=== PATIENT | female | born 1980 ===

== ENCOUNTER 2017-08-14 12:51 | Inpatient (IN) | payer OTHER ==
--- NOTE | 2017-08-14 13:51 | OBHP ---
Datetime: 08/14/2017 13:47 IP Adm Impression: Term, intrauterine ; Active labor IP Admit Plan: Admit to unit; Initiate labor protocol Admit Comment, IP Provider: at 40weeks came withc/o ctxs started last night, getting worse, 5/1 0,no vb, lof+fm obhx 3 x pmh den med pnv all nkda psh de soch de ve /-2 a/p at 40+weeks in lbor admit to l_d npo/ivf labs cont tomi and efm anticipate Pelvic Type - PN: Adequate Extremities - PN: Normal Abdomen - PN: Normal Back - PN: Normal Breast - PN: Normal Lungs - PN: Normal Heart - PN: Normal Thyroid - PN: Normal Neurologic - PN: Normal HEENT - PN: Normal General - PN: Normal FHR - Baseline A Provider: 130 Contraction Comments Provider: irrg IP Hx Assessment: The History has been Reviewed and is Current EGA AdmitDate IP: 40.1 Vital Signs Provider: Reviewed; Within Normal Limits IP Indication for Induction: Postterm IP Chief Complaint: Uterine contractions NICHD Variability Prov Fetus A: Moderate 6-25bpm NICHD Accel Fetus A IP Provider: [id number] FHR Category Provider Fetus A: Category I Dilatation, Provider: 4 Effacement, Provider: 80 Station, Provider: -2 Genitourinary Exam: Normal DTRs - PN: Normal
[2017-08-14] MEDS ORDERED: Oxytocin 30 UNIT 30 UNITS/500 ML BAG IV PRN (13:55)
[2017-08-14 13:56] VITALS: BMI 33.8
[2017-08-14] MEDS ORDERED: Lactated Ringer's 1,000 ML IV SCH (14:00)
[2017-08-14 14:19] LABS: BASO % 0.2 % (0.0-2.0); EOS % 0.4 % (0.0-4.0); HEMOGLOBIN 13.5 g/dL (11.0-16.0); LYMPH # 2.4 K/uL (1.0-4.3); LYMPH % 16.9 % (20.0-40.0); MEAN CELL VOLUME 96.8 fL (81.0-99.0); MEAN CORPUSCULAR HEMOGLOBIN 33.1 pg (27.0-31.0); MEAN CORPUSCULAR HGB CONC 34.2 g/dL (33.0-37.0); MEAN PLATELET VOLUME 9.2 fL (7.2-11.7); MONO # 0.7 K/uL (0.0-0.8); NEUT # 10.8 K/uL (1.8-7.0); NEUT % 77.5 % (50.0-75.0); RBC 4.08 Mil/uL (3.80-5.20); RED CELL DISTRIBUTION WIDTH 14.6 % (11.5-14.5)
[2017-08-14] MEDS ORDERED: Oxytocin 30 UNIT 30 UNITS/500 ML BAG IV ONE (14:25)
[2017-08-14 14:37] LABS: SQUAMOUS EPITHIAL 31 /hpf (0-5); URINE BACTERIA RARE (<OCC); URINE BILIRUBIN NEGATIVE (NEGATIVE); URINE BLOOD 2+ (NEGATIVE); URINE CLARITY Hazy (Clear); URINE COLOR Yellow (YELLOW); URINE GLUCOSE (UA) NORMAL (Normal); URINE LEUKOCYTE ESTERASE NEG Leu/uL (Negative); URINE PROTEIN NEGATIVE (NEGATIVE); URINE UROBILINOGEN NORMAL mg/dL (0.2-1.0)
[2017-08-14 14:45] LABS: ALB/GLOB RATIO 0.9 (1.0-2.1); ALBUMIN 3.5 g/dL (3.5-5.0); ALT/SGPT 8 U/L (9-52); AST/SGOT 21 U/L (14-36); BLOOD UREA NITROGEN 10 mg/dL (7-17); CALCIUM 9.4 mg/dl (8.6-10.4); GFR AFRICAN-AMERICAN > 60; GFR NON-AFRICAN AMERICAN > 60
[2017-08-14] MEDS ORDERED: Bupivacaine HCl/FentaNYL Cit 100 ML EPI ONE (15:05)
[2017-08-14] MEDS ORDERED: Oxytocin 20 units in LR 2,000 ML IV ONE (15:05)
[2017-08-14] MEDS ORDERED: Bupivacaine HCl 0.25% PF (10 ml) Inj ONE (16:10)
[2017-08-14] MEDS ORDERED: Oxycodone/Acetaminophen 5/325 mg Tab PO PRN (17:13)
[2017-08-14] MEDS ORDERED: Benzocaine/Menthol 20%-0.5% Topical Spray (60 ml) TOP PRN (17:13)
--- NOTE | 2017-08-14 17:14 | OBDS ---
DELIVERY PERSONNEL Delivery Doctor: Isaiah Hamlin MD Anesthesiologist: christine MATERNAL INFORMATION Delivery Anesthesia: Epidural Other Maternal Complications: AMA H/O +HPV (2016) RN Comments: Patient has consents signed for BTL in chart Provider Comments: baby deliverd in ann. end clean no com. 9/9 LABOR SUMMARY EDC: 08/13/2017 00:00 No. Babies in Womb: 1 Attempted: No Labor Anesthesia: Epidural LABOR INFORMATION Reason for Induction: Not Applicable Onset of Labor: 08/14/2017 05:00 Oxytocin: Augmentation Group B Beta Strep: Negative Steroids Given: None Reason Steroids Not Administered: Not Applicable MEMBRANES Membranes Rupture Method: Spontaneous Rupture of Membranes: 08/14/2017 15:12 Amniotic Fluid Color: Clear Amniotic Fluid Amount: Large Amniotic Fluid Odor: None BABY A INFORMATION Born in Route : No : N/A PRESENTATION/POSITION BABY A Presentation: Cephalic Cephalic Presentation: Vertex Vertex Position: Left Occipital Anterior Breech Presentation: N/A PLACENTA INFORMATION BABY A Placenta Method of Delivery: Spontaneous Placenta Status: Delivered INFORMATION BABY A Gestational Age at Delivery: 40.1 Gestational Status: Term Infant Sex: Male IDENTIFICATION/MEDS BABY A ID Band Number: [id number] Sensor Number: [id number]
[2017-08-14] MEDS ORDERED: Oxytocin 30 UNIT 30 UNITS/500 ML BAG IV SCH (17:15)
[2017-08-15 07:26] LABS: HEMOGLOBIN 13.1 g/dL (11.0-16.0); MEAN CELL VOLUME 96.8 fL (81.0-99.0); MEAN CORPUSCULAR HEMOGLOBIN 33.1 pg (27.0-31.0); MEAN CORPUSCULAR HGB CONC 34.2 g/dL (33.0-37.0); MEAN PLATELET VOLUME 9.7 fL (7.2-11.7); RBC 3.97 Mil/uL (3.80-5.20); RED CELL DISTRIBUTION WIDTH 14.5 % (11.5-14.5); WHITE BLOOD COUNT 17.1 K/uL (4.8-10.8)
--- NOTE | 2017-08-15 10:40 | OBPPN ---
Datetime: 08/15/2017 10:36 PP Pain Prov: Within normal limits PP Nausea Prov: Denies PP Flatus Prov: Yes PP BM Prov: No PP Breasts Prov: Normal PP Heart Prov: Normal PP Lungs Prov: Normal PP Abdomen/Uterus Prov: Normal PP Lochia Prov: Normal PP Vulva/Perineum Prov: Normal PP CVA Tenderness Prov: Normal PP Extremities Prov: Normal PP C/S Incision Prov: Not Applicable PP Progress Prov: Normal PP Impression Prov: Normal progression PP Plan Prov: Continue present management PP Progress Note Prov: pt seen and examiend and reprot pain contolled, ambuitng, voidng, passing fla tus, VSS PE see above A/P s/p ppd #1 doign wlel f/u am cbc pain mangemtn encouarg ambiaotn, breat feeding IP PP Procedures: None Vital Signs Provider PP: Reviewed; Within Normal Limits
[2017-08-15] MEDS: Oxycodone/Acetaminophen 5/325 mg Tab PO PRN (19:49)
[2017-08-16 08:05] LABS: BASO % 0.2 % (0.0-2.0); EOS # 0.1 K/uL (0.0-0.7); EOS % 0.4 % (0.0-4.0); HEMOGLOBIN 13.9 g/dL (11.0-16.0); LYMPH # 2.7 K/uL (1.0-4.3); LYMPH % 18.3 % (20.0-40.0); MEAN CELL VOLUME 97.3 fL (81.0-99.0); MEAN CORPUSCULAR HEMOGLOBIN 32.5 pg (27.0-31.0); MEAN CORPUSCULAR HGB CONC 33.4 g/dL (33.0-37.0); MEAN PLATELET VOLUME 9.1 fL (7.2-11.7); MONO # 0.6 K/uL (0.0-0.8); MONO % 4.4 % (0.0-10.0); NEUT # 11.2 K/uL (1.8-7.0); NEUT % 76.7 % (50.0-75.0); NRBC % 0.1 % (0.0-2.0); RBC 4.26 Mil/uL (3.80-5.20); RED CELL DISTRIBUTION WIDTH 14.6 % (11.5-14.5); WHITE BLOOD COUNT 14.6 K/uL (4.8-10.8)
[2017-08-16 08:07] VITALS: BP 106/67; PULSE 79; TEMP 98; O2SAT 97
[2017-08-16] MEDS: Oxycodone/Acetaminophen 5/325 mg Tab PO PRN (08:57)
--- NOTE | 2017-08-16 10:24 | CP.PCM.DIS ---
Provider - Provider Date of Admission: 08/14/17 13:50 Attending physician: Isaiah Hamlin MD Primary care physician: ad Time Spent in preparation of Discharge (in minutes): 10 Diagnosis - Discharge Diagnosis (1) Labor abnormality, delivered Status: Acute Hospital Course - Lab Results Lab Results: Most Recent Lab Values WBC 14.6 K/uL (4.8-10.8) H 08/16/17 07:56 RBC 4.26 Mil/uL (3.80-5.20) 08/16/17 07:56 Hgb 13.9 g/dL (11.0-16.0) 08/16/17 07:56 Hct 41.5 % (34.0-47.0) 08/16/17 07:56 MCV 97.3 fL (81.0-99.0) 08/16/17 07:56 MCH 32.5 pg (27.0-31.0) H 08/16/17 07:56 MCHC 33.4 g/dL (33.0-37.0) 08/16/17 07:56 RDW 14.6 % (11.5-14.5) H 08/16/17 07:56 Plt Count 146 K/uL (130-400) 08/16/17 07:56 MPV 9.1 fL (7.2-11.7) 08/16/17 07:56 Neut % (Auto) 76.7 % (50.0-75.0) H 08/16/17 07:56 Lymph % (Auto) 18.3 % (20.0-40.0) L 08/16/17 07:56 [place] % (Auto) 4.4 % (0.0-10.0) 08/16/17 07:56 Eos % (Auto) 0.4 % (0.0-4.0) 08/16/17 07:56 Baso % (Auto) 0.2 % (0.0-2.0) 08/16/17 07:56 Neut # (Auto) 11.2 K/uL (1.8-7.0) H 08/16/17 07:56 Lymph # (Auto) 2.7 K/uL (1.0-4.3) 08/16/17 07:56 [place] # (Auto) 0.6 K/uL (0.0-0.8) 08/16/17 07:56 Eos # (Auto) 0.1 K/uL (0.0-0.7) 08/16/17 07:56 Baso # (Auto) 0.0 K/uL (0.0-0.2) 08/16/17 07:56 Sodium 135 mmol/L (132-148) 08/14/17 14:12 Potassium 3.8 mmol/L (3.6-5.2) 08/14/17 14:12 Chloride 103 mmol/L (98-107) 08/14/17 14:12 Carbon Dioxide 21 mmol/L (22-30) L 08/14/17 14:12 Anion Gap 15 (10-20) 08/14/17 14:12 BUN 10 mg/dL (7-17) 08/14/17 14:12 Creatinine 0.5 mg/dL (0.7-1.2) L 08/14/17 14:12 Est GFR ( Amer) > 60 08/14/17 14:12 Est GFR (Non-Af Amer) > 60 08/14/17 14:12 POC Glucose (mg/dL) 79 mg/dL (65-110) 08/16/17 10:02 Random Glucose 74 mg/dL (65-105) 08/14/17 14:12 Calcium 9.4 mg/dl (8.6-10.4) 08/14/17 14:12 Total Bilirubin 1.1 mg/dL (0.2-1.3) 08/14/17 14:12 AST 21 U/L (14-36) 08/14/17 14:12 ALT 8 U/L (9-52) L 08/14/17 14:12 Alkaline Phosphatase 145 U/L (38-126) H 08/14/17 14:12 Total Protein 7.2 g/dL (6.3-8.3) 08/14/17 14:12 Albumin 3.5 g/dL (3.5-5.0) 08/14/17 14:12 Globulin 3.7 gm/dL (2.2-3.9) 08/14/17 14:12 Albumin/Globulin Ratio 0.9 (1.0-2.1) L 08/14/17 14:12 Urine Color Yellow (YELLOW) 08/14/17 14:12 Urine Clarity Hazy (Clear) 08/14/17 14:12 Urine pH 6.0 (5.0-8.0) 08/14/17 14:12 Ur Specific [place] 1.019 (1.003-1.030) 08/14/17 14:12 Urine Protein Negative mg/dL (NEGATIVE) 08/14/17 14:12 Urine Glucose (UA) Normal mg/dL (Normal) 08/14/17 14:12 Urine Ketones Negative mg/dL (NEGATIVE) 08/14/17 14:12 Urine Blood 2+ (NEGATIVE) H 08/14/17 14:12 Urine Nitrate Negative (NEGATIVE) 08/14/17 14:12 Urine Bilirubin Negative (NEGATIVE) 08/14/17 14:12 Urine Urobilinogen Normal mg/dL (0.2-1.0) 08/14/17 14:12 Ur Leukocyte Esterase Neg [place]/uL (Negative) 08/14/17 14:12 Urine WBC (Auto) 4 /hpf (0-5) 08/14/17 14:12 Urine RBC (Auto) 19 /hpf (0-3) H 08/14/17 14:12 Ur Squamous Epith Cells 31 /hpf (0-5) H 08/14/17 14:12 Urine Bacteria Rare (<OCC) 08/14/17 14:12 RPR Nonreactive (NONREACTIVE) 08/14/17 14:12 Blood Type O POSITIVE 08/14/17 14:12 Antibody Screen Negative 08/14/17 14:12 - Hospital Course Hospital Course: Pt admitted for labor. Delivered over intact perineum. Male . - Date & Time of H&P Date of H&P: 08/16/17 Time of H&P: 10:23 Discharge Exam - Eye Exam Eye Exam: Normal appearance Pupil Exam: NORMAL ACCOMODATION - Exam Exam: NORMAL INSPECTION External exam: NORMAL EXTERNAL EXAM Speculum exam: NORMAL SPECULUM EXAM Bimanual exam: NORMAL BIMANUAL EXAM - Neurological Exam Neurological exam: Alert, Oriented x3 - Skin Skin Exam: Normal Color Discharge Plan - Follow Up Plan Condition: GOOD Disposition: HOME/ ROUTINE Instructions: Jaundice in Babies, Hemorrhage, Depression (DC), Breast Care for the Woman, Pumping Breast Milk, , Common Problems
[2017-08-16 20:04] VITALS: RESP 18
--- NOTE | 2017-08-17 10:21 | OBDCSUM ---
Datetime: 08/16/2017 10:50 Discharged to, Provider: Home Follow up at, Provider: [facility] Disch Instr Activity: Normal activity Disch Instr Diet: Regular Discharge Diet restrict Prov: none Discharge Instructions, Provider: Routine instructions given Discharge Diagnosis, Provider: Term Delivered Discharge Time: 08/16/2017 11:30 Follow up in weeks, Provider: 2017 Disch Referrals: None Disch Activity Restrictions: No exercising; No lifting; No driving; Minimize walking; Minimize stair -climbing; No sexual activity; Nothing in vagina - [place], tampons, douche Discharge Comment, Provider: S/P PPD#2 No complaints. Breast Feeding Discharge home. Contraception after Delivery: Not Planning to Use Dr Signature: John Nassar MD Datetime: 08/16/2017 10:14 Discharged to, Provider: Home Disch Instr Activity: Normal activity Disch Instr Diet: Regular Discharge Instructions, Provider: Routine instructions given Discharge Diagnosis, Provider: Term Delivered Discharge Time: 08/16/2017 10:15 Follow up in weeks, Provider: 6 weeks Disch Referrals: None Contraception discussed, Prov: Yes Discharge Comment, Provider: PPD #2. VSS. Afebrile. Brast Feeding.No complaints. Ambulating. To lerating PO diet. Plan: Discharge Home. Signature: garland nassar
== END 2017-08-16 14:00 | disposition home or self-care (01) | DRG 373 ==
LOC: C.EROB 12:51 → C.4D 13:50 → C.4M 18:32
PROVIDERS: ADMIT Obstetrics & Gynecology; ATTEND Obstetrics & Gynecology
PROC: 10E0XZZ Delivery of Products of Conception, External Approach (ICD-10-PCS; principal; 2017-08-14)
DX: O48.0 Post-term pregnancy (principal); Z3A.40 40 weeks gestation of pregnancy; Z37.0 Single live birth